=== PATIENT | male | born 1980 | race Caucasian/White ===

== ENCOUNTER → 2019-08-11 13:56 | Outpatient (CLI) | payer OTHER, SELFPAY ==
[2019-08-02 14:47] VITALS: BMI 23.5
--- NOTE | 2019-08-11 13:58 | ECHOD_ITS ---
Reason For Study: Chest Pain Procedure This was a 2D Doppler, Color Flow transthoracic echocardiogram. Exam performed in department. Left Ventricle Normal size and thickness. The estimated ejection fraction is 65 %. Normal diastology for age. No regional wall motion abnormalities noted. Right Ventricle Normal size and thickness. Normal systolic function. Atria Normal left atrium. Normal right atrium. Normal atrial septum. Mitral Valve The mitral valve is structurally normal. No prolapse or stenosis seen. Trivial mitral valve insufficiency. Tricuspid Valve Normal tricuspid valve. Trivial tricuspid valve insufficiency. Right ventricular systolic pressure estimated to be 27 mmHg. Aortic Valve Normal aortic valve. Trisinus/trileaflet aortic valve. Pulmonic Valve Normal pulmonic valve. Great Vessels Normal aortic root. Normal arch. Normal inferior vena cava. Inferior vena cava collapse with sniff. Pericardium/Pleural No pericardial effusion. MMode/2D Measurements & Calculations LVIDd: 4.9 cm IVSd: 1.1 cm Ao root diam: 2.6 cm LVIDs: 3.3 cm LVPWd: 0.90 cm RVDd: 3.5 cm FS: 32.5 % LAV(MOD-bp): 54.2 ml LVAd ap4: 33.7 cm2 SV(MOD-sp4): 67.3 ml LAV(MOD-bp) Indexed: 27.9 ml/m2 EDV(MOD-sp4): 103.7 ml LAV(MOD-sp2): 66.6 ml EDV(sp4-el): 105.7 ml LAV(MOD-sp4): 41.0 ml LVAs ap4: 17.9 cm2 ESV(MOD-sp4): 36.4 ml ESV(sp4-el): 35.9 ml EF(MOD-sp4): 64.9 % EF(sp4-el): 66.0 % SV(sp4-el): 69.8 ml LA A4 area: 16.8 cm2 LA dimension(2D): 3.8 cm RA A4 area: 19.2 cm2 Doppler Measurements & Calculations MV E max shaquille: 93.5 cm/sec Lat Peak E' [place]: 22.4 cm/sec Med Peak E' [place]: 10.8 cm/sec MV A max [place]: 40.7 cm/sec E/E' lat: 4.2 E/E' med: 8.7 MV E/A: 2.3 Ao V2 max: 153.7 cm/sec LV V1 max: 151.6 cm/sec PA V2 max: 148.0 cm/sec Ao max P.4 mmHg LV V1 max P.2 mmHg Ao V2 mean: 108.1 cm/sec Ao mean P.2 mmHg Ao V2 VTI: 34.2 cm TR max sh[place]: 235.0 cm/sec TR max P.1 mmHg Interpretation Summary The estimated ejection fraction is 65 %. Normal diastology for age. Trivial mitral valve insufficiency. Trivial tricuspid valve insufficiency. Right ventricular systolic pressure estimated to be 27 mmHg. There is no comparison study available. Ordering Physician: Narayan Saunders Referring Physician: [facility] Performed By: Kim Acevedo, KARMIE, RVT
== END ==
PROVIDERS: Referring Provider Internal Medicine Cardiovascular Disease; Visit Provider Internal Medicine Cardiovascular Disease
DX: R01.1 Cardiac murmur, unspecified (principal); R07.9 Chest pain, unspecified
CPT/HCPCS: 93306